=== PATIENT | female | born 1985 | race Caucasian/White ===

== ENCOUNTER 2022-08-16 13:05 | Outpatient (CLI) | payer OTHER, SELFPAY ==
--- NOTE | 2022-08-16 13:00 | CRLHL7_ITS ---
For Patients: As a result of the Century Cures Act, medical imaging exams and procedure reports are released immediately into your electronic medical record. You may view this report before your referring provider. If you have questions, please contact your health care provider. INDICATION: Left lower quadrant abdominal pelvic pain. TECHNIQUE: Transabdominal and transvaginal pelvic ultrasound. FINDINGS: The uterus measures 7.9 x 4.1 x 5.2 cm. The endometrial stripe measures 7.1 mm measured transvaginally. The right ovary measures 2.8 x 2.2 x 2.4 cm. The left ovary measures 4.2 x 2.5 x 2.1 cm. Both ovaries contain a few small follicles. Blood flow is identified in the ovaries. Minimal free pelvic fluid likely physiologic. IMPRESSION: Normal transabdominal and transvaginal pelvic ultrasound. Dictated by Jesus Benedict MD @ 08/16/2022 2:11:52 PM (Electronically Signed)
== END 2022-08-16 13:06 | disposition home or self-care (01) ==
LOC: US 13:06
PROVIDERS: PCP Family Medicine; Visit Provider Family Medicine
DX: R10.32 Left lower quadrant pain (principal)
CPT/HCPCS: 76830; 76856

== ENCOUNTER 2022-08-21 08:23 | Outpatient (CLI) | payer OTHER, SELFPAY ==
--- NOTE | 2022-08-21 08:30 | CRLHL7_ITS ---
For Patients: As a result of the Century Cures Act, medical imaging exams and procedure reports are released immediately into your electronic medical record. You may view this report before your referring provider. If you have questions, please contact your health care provider. Indication: Left lower quadrant pain Technique: Postcontrast CT abdomen and pelvis. 116 cc Isovue 370 intravenous contrast. Oral water. Please note that all CT scans at this facility use dose modulation, iterative reconstruction, and/or weight-based dosing when appropriate to reduce radiation dose to as low as reasonably achievable. Comparison: None Findings: The uterus is normal. Both ovaries are unremarkable. Normal bladder. No adnexal mass or pelvic free fluid. No abscess. No bowel obstruction or free air. No diverticular disease. Lung bases are clear. Normal-appearing heterogeneous breast tissue lateral left breast. Osseous structures are normal for age. The liver is mildly enlarged. There is mild diffuse attenuation decrease of the liver. A small cyst is present at the lateral right hepatic lobe. The spleen is normal in size. Incidental splenule noted. Normal pancreas. Gallbladder normal. Adrenal glands and kidneys within normal limits. No adenopathy. There is heterogeneous thickening of the left rectus abdominus muscle measuring 2.0 x 2.5 x 3.2 cm. Impression: Heterogeneous partially defined area of increased density associated with the left rectus muscle most consistent with intramuscular hematoma, likely from recent sprain/strain/injury. Normal bowel. No evidence of diverticulitis. Normal ovaries. No adnexal mass or excess pelvic free fluid. Mild hepatomegaly with mild diffuse hepatic steatosis. Please note that all CT scans at this facility use dose modulation, iterative reconstruction, and/or weight-based dosing when appropriate to reduce radiation dose to as low as reasonably achievable. Dictated by Huber Balderrama MD @ 08/21/2022 10:16:32 AM (Electronically Signed)
== END 2022-08-21 08:24 | disposition home or self-care (01) ==
PROVIDERS: PCP Family Medicine; Visit Provider Family Medicine
DX: R10.32 Left lower quadrant pain (principal); K76.0 Fatty (change of) liver, not elsewhere classified
CPT/HCPCS: 74177; Q9967

== ENCOUNTER 2023-04-23 11:50 | Outpatient (CLI) | payer OTHER, SELFPAY | END 2023-04-23 11:51 | disposition home or self-care (01) | LOC: NFLDREF 11:51 | PROVIDERS: PCP Family Medicine; Visit Provider Family Medicine | DX: N39.0 Urinary tract infection, site not specified (principal) | CPT/HCPCS: 87086 ==